=== PATIENT | male | born 1970 | race Two or more races ===

== ENCOUNTER → 2019-05-14 | Outpatient (CLI) | payer OTHER ==
[~2019-05-14] MED LIST: BYDUREON P2 MG/0.65; CLONAZEPA PO; DEPAKOT PO; GEODON80 MG; HUMULIN R; INSULIN; INVOKANA300 MG PO; LOPID PO; RESTORIL30 M1 PO; SYNTHROID175 MCG PO
== END | disposition home or self-care (01) ==
LOC: EKG 08:00 → ADM 14:00 → CIR.AMB 05-20 14:00 → EDSTATUS 05-20 14:00
DX: I10 Essential (primary) hypertension (principal); M19.022 Primary osteoarthritis, left elbow; Z01.810 Encounter for preprocedural cardiovascular examination